=== PATIENT | female | born 1945 | race Caucasian/White ===

== ENCOUNTER → 2023-10-06 10:01 | Outpatient (REF) | payer MEDICARE, SELFPAY | LOC: HWRCS 10:01 | PROVIDERS: ATTENDING PHYSICIAN Physician Assistant Medical; REFERRING PHYSICIAN Internal Medicine Cardiovascular Disease | DX: I51.81 Takotsubo syndrome (principal) | CPT/HCPCS: 93306 ==

== ENCOUNTER → 2024-10-04 10:49 | Outpatient (REF) | payer MEDICARE, SELFPAY ==
[2024-10-04 14:55] LABS: % Basophils 0.4 % (0-2); % Eosinophils 1.4 % (0-6); % Immature Granulocytes 0.7 % (0-0.5); % Lymphocytes 35.9 % (20.5-51.1); % Monocytes 14.2 % (1.7-9.3); % Neutrophils 47.4 % (42.2-75.2); Absolute Eosinophils 0.1 10^3/uL (0-0.7); Absolute Monocytes 0.8 10^3/uL (0.1-0.6); Absolute Neutrophils 2.6 10^3/uL (1.4-6.5); Hematocrit 38.5 % (37.0-47.0); Hemoglobin 12.9 g/dL (12.0-16.0); Mean Corp Hgb Conc. 33.5 g/dL (33.0-37.0); Mean Corpuscular Hgb 28.3 pg (27.0-31.0); Mean Corpuscular Volume 84.4 fL (81.0-99.0); Nucleated Red Blood Cells % 0 %; Platelet Count 244 10^3/uL (130-400); Red Blood Cell Count 4.56 10^6/uL (4.20-5.40); Red Cell Dist. Width 12.6 % (11.5-14.5); White Blood Cell Count 5.6 10^3/uL (4.8-10.8)
[2024-10-04 15:02] LABS: ALT (SGPT) 16 U/L (0-35); AST (SGOT) 24 U/L (14-36); Albumin 4.9 g/dl (3.5-5.0); Alkaline Phosphatase 56 U/L (38-126); Blood Urea Nitrogen 13 mg/dl (7-17); Calcium 9.9 mg/dl (8.4-10.2); Carbon Dioxide 26 mmol/L (22-30); Chloride 99 mmol/L (98-107); Glucose 84 mg/dl (70-99); HDL Cholesterol 83 mg/dl; LDL Cholesterol, Calculated 67 mg/dl; Potassium 4.4 mmol/L (3.5-5.1); Sodium 135 mmol/L (135-145); Total Bilirubin 0.8 mg/dl (0.2-1.3); Total Cholesterol 165 mg/dl (50-199); Total Protein 7.5 g/dl (6.3-8.2); Triglyceride 78 mg/dl (10-149); Very Low Density Lipoprotein 15 mg/dl (0-30); eGFR > 60.00
== END ==
LOC: HWLAB 10:49
PROVIDERS: ATTENDING PHYSICIAN Physician Assistant Medical
DX: Z00.01 Encounter for general adult medical examination with abnormal findings (principal); F33.42 Major depressive disorder, recurrent, in full remission; I51.81 Takotsubo syndrome; G25.0 Essential tremor; E78.00 Pure hypercholesterolemia, unspecified; M25.551 Pain in right hip
CPT/HCPCS: 36415; 80053; 80061; 85025

== ENCOUNTER → 2024-10-05 12:03 | Outpatient (REF) | payer MEDICARE, SELFPAY | LOC: HWRAD 12:03 | PROVIDERS: ATTENDING PHYSICIAN Physician Assistant Medical | DX: M25.551 Pain in right hip (principal) | CPT/HCPCS: 73502 ==

== ENCOUNTER → 2024-11-16 10:58 | Outpatient (REF) | payer MEDICARE, SELFPAY ==
[2024-11-16 16:20] LABS: TSH Reflex To Free T4 1.76 uIU/ml (0.47-4.68)
== END ==
LOC: HWLAB 10:58
PROVIDERS: ATTENDING PHYSICIAN Otolaryngology; FAMILY PHYSICIAN Physician Assistant Medical
DX: E03.9 Hypothyroidism, unspecified (principal)
CPT/HCPCS: 36415; 84443

== ENCOUNTER → 2024-12-21 11:13 | Outpatient (REF) | payer MEDICARE, SELFPAY | LOC: PAVMRI 11:13 | PROVIDERS: ATTENDING PHYSICIAN Otolaryngology; FAMILY PHYSICIAN Family Medicine | DX: H90.3 Sensorineural hearing loss, bilateral (principal) | CPT/HCPCS: 70553; A9575 ==

== ENCOUNTER 2025-08-17 08:08 | Inpatient (IN) | payer MEDICARE, SELFPAY ==
[2025-08-14 15:39] VITALS: BP 163/77
[2025-08-14 16:06] LABS: Hematocrit 40.0 % (37.0-47.0); Hemoglobin 13.6 g/dL (12.0-16.0); Mean Corp Hgb Conc. 34.0 g/dL (33.0-37.0); Mean Corpuscular Volume 83.2 fL (81.0-99.0); Nucleated Red Blood Cells % 0 %; Platelet Count 228 10^3/uL (130-400); Red Cell Dist. Width 12.5 % (11.5-14.5)
[2025-08-14 16:25] LABS: ALT (SGPT) 21 U/L (0-35); AST (SGOT) 23 U/L (14-36); Albumin 4.7 g/dl (3.5-5.0); Alkaline Phosphatase 64 U/L (38-126); Blood Urea Nitrogen 14 mg/dl (7-17); Calcium 9.7 mg/dl (8.4-10.2); Carbon Dioxide 24 mmol/L (22-30); Chloride 100 mmol/L (98-107); Glucose 118 mg/dl (70-99); Potassium 4.3 mmol/L (3.5-5.1); Sodium 131 mmol/L (135-145); Total Protein 7.7 g/dl (6.3-8.2); eGFR > 60.00
[2025-08-14 21:49] VITALS: BP 155/80
[2025-08-14 22:00] VITALS: BP 151/71
--- NOTE | 2025-08-14 22:26 | ED.GENMED ---
History of Present Illness
General
Chief Complaint: Abdominal Symptoms
Source: patient and family
Time Seen by Provider: 08/14/25 21:36
History of Present Illness
History of Present Illness:
This patient is a 79-year-old female with a history of vertigo, last received treatment approximately 1-1/2 years states that she felt purply well when she got up this morning. She went downstairs, had breakfast and then lay down on the sofa. She
then started to feel very dizzy so she sat up and as needed worse associated with nausea. She said it was a sense of spinning but also feeling like she was to be 'lurched to the wall and. She had great difficulty walking to the bathroom where she
had repeated episodes of nonbloody vomiting and nonbloody diarrhea. This was persistent. By 2 PM she was able to call her PCP who referred her to the ED, she then called EMS and arrived here. She continues to report vertigo, much worse when she
moves her head 1 where the other and is unable to walk at this time because of such severe dizziness. She is tired and has a very mild headache. She denies numbness, tingling, diplopia, dysarthria, dysphagia, chest pain, dyspnea, focal weakness,
recent trauma, or other complaints.
Past History
Past History
ED Past Medical History: Other (Essential tremor, Takotsubo, tinnitus, neuropathy, DDD)
ED Past Surgical History: Other (Tympanostomy)
Social History
Tobacco: Non-smoker
Alcohol: None
Drug: None
Phy Exam
Physical Exam
Physical Exam:
GENERAL: Alert , in no apparent distress
EYE: pupils equal and reactive, no photophobia, EOMI, no nystagmus
NECK: Supple, no significant adenopathy.
ENT: o/p clr, mmm.
CARDIAC: Regular rate and rhythm .
LUNGS: Clear breath sounds bilaterally, no acute respiratory distress, no wheezes/rales/rhonchi
ABDOMEN: Soft, without focal tenderness, no r/g, no cvat
NEUROLOGICAL: Alert and oriented, no focal neuro deficits, [id number] normal, motor 5 out of 5, sensory intact, cranial nerves II through XII.
SKIN: Warm and dry, skin intact.
MUSCULOSKELETAL: No edema, well perfused.
PSYCH: Normal and appropriate interaction.
Course
Orders/Labs/Results
Orders:
Orders
08/14/25 15:53
Complete Blood Count/With Diff Urgent
Comprehensive Metabolic Panel Urgent
08/14/25 22:03
CT Head W/o Iv Contrast Urgent
Comment:
Reason For Exam: DIZZY
08/14/25 22:24
0.9% Sodium Chloride 1000 ml [Nss] 1,000 ml IV BOLUS
Lorazepam [Ativan] 1 mg IV NOW STA
08/15/25 00:04
Meclizine [Antivert] 25 mg PO NOW STA
08/15/25 02:32
Admit/Transfer Patient As Directed
Co-Sign Provider:
Level of Care: Observation services
Assign to:: Telemetry
Physician / Group: Jair
Diagnosis: Vertigo
Reason for Telemetry: Arrhythmia
Date to Stop Telemetry: 08/18/25
Time to Stop Telemetry: 11:00
PRN Pain Medication Management As Directed
May give lesser potent ordered pain med per pt: Yes
preference::
Protocol:: Medication orders for pain may be administered in a
manner that supports deferring to patient preference
when the pt is:
- Requesting an ordered lesser potent pain medication.
Least to most potent pain medications are defined
as: acetaminophen < NSAID < tramadol < opioids
(morphine, oxycodone, hydromorphone).
- Requesting a lesser dose of the same medication IF
ORDERED.
- Requesting a less intrusive route of administration
if both routes are prescribed by the provider (PO <
IV).
08/15/25 02:33
Code Status As Directed
Resuscitation Status: Full Code
08/15/25 04:32
Acetaminophen [Tylenol] 650 mg PO Q4HPRN PRN
Diazepam [Valium] 5 mg PO TIDPRN PRN
08/15/25 04:32
Activity As Directed
Activity Level: Ambulate
With Assistance
I/O [Intake/ Output] As Directed
Frequency: Per unit guidelines
Pneumatic Compression Sleeves As Directed
Type: Knee high
Vital Signs As Directed
Frequency: Per unit guidelines
Weight As Directed
Frequency: Daily
Oxygen Therapy [O2 Therapy] [RESP] Routine
Titrate/Wean O2 to maintain O2 sat greater than (%): 94
PT Consult [Pt Eval And Treat] Routine
Treatment: Vestibular Therapy eval
Activity Level: Ambulate
With Assistance
DX Deep Vein Thrombosis Video Routine
08/15/25 Breakfast
Regular
At Your Request: Full Participation
08/15/25 06:30
Basic Metabolic Panel IN AM
Complete Blood Count/No Diff IN AM
TSH Reflex To Free T4 Routine
08/15/25 08:00
Aspirin Low Dose EC [Aspir Low (Enteric Coated)] 81 mg PO DAILY
Atorvastatin [Lipitor] 40 mg PO DAILY
Bupropion(12Hr)Sustain Release [WELLBUTRIN SR (12 hour sustained release)] 150 mg PO DAILY
Carvedilol [Coreg] 3.125 mg PO BID
Gabapentin [Neurontin] 300 mg PO TID
Loratadine [Claritin] 10 mg PO DAILY
Meclizine [Antivert] 25 mg PO Q8HPRN PRN
08/18/25 11:00
DC Protocol for Telemetry ONCE
Abnormal Lab Results
08/14/25
15:53
Abs Immat Gran (auto) 0.1 H 10^3/uL
(0-0.05)
Immature Gran % 1.3 H %
(0-0.5)
Lymphocytes % 20.1 L %
(20.5-51.1)
Sodium 131 L mmol/L
(135-145)
Glucose 118 H mg/dl
(70-99)
08/14/25 15:53
08/14/25 15:53
Vital Signs
Initial and Last Documented VS:
Initial Vital Signs
Temp Pulse Resp BP Pulse Ox
97.4 F 61 16 163/77 97
08/14/25 15:39 08/14/25 15:39 08/14/25 15:39 08/14/25 15:39 08/14/25 15:39
Last Documented Vital Signs
Temp Pulse Resp BP Pulse Ox
98.4 F 73 18 146/74 99
08/16/25 12:00 08/16/25 12:00 08/16/25 12:00 08/16/25 12:00 08/16/25 12:00
*Pulse Oximetry
SaO2: 98
Oxygen Mode of Delivery: Room air
Patient hypoxic: no
*Critical Care Note
Total Time (30-74mins, 75-104mins- exclusive of procedures): Not Applicable
Update Note
Update Note:
Patient presents to the Emergency Department with extreme vertigo associated with nausea vomiting diarrhea
Number and Complexity of Problems Addressed at the Encounter
� Chronic conditions affecting care:
� Acute Exacerbation and/or Progression of Chronic Illness:
� Differential Diagnosis includes: Related to vestibular neuritis, cerebellar infarct, tia, BPPV, dehydration, gastroenteritis, etc etc
Amount and/or Complexity of Data to be Reviewed and Analyzed
� I performed an independent evaluation of and my interpretation is:
EKG:
CT:
Xrays:
Laboratory Studies:unremarkable
Other:
� Review of other/old records reveals:
� Clinical information was obtained by an independent historian:
� Prescriptions/Medications Considered but not given:
� Further testing considered but not performed:
Risk of Complications and/or Morbidity or Mortality of Patient Management
� Social determinants of health affecting care:
� Discussion with other providers (PCP, Hospitalists, Consultants, etc):
� Escalation of care including admission/observation vs risk of discharge considered:Pt intolerant of Browne Bristol maneuver due to extreme dizziness with head movmeent.
1205 AM Reassessment...pt feels only sl better s/p meds. She tried to stand up and started to sway, c/o vertigo. Will admit, neuro c/s and likely MR in AM. Does not meet criteria for MT/tnk given nih=0.
ED Attending Note
-
Portions of this chart may have been created with voice recognition software.� Occasional wrong word or��sound alike� substitutions may have occurred due to the inherent limitations of voice recognition software.
Discharge Plan
Departure
Patient Disposition: Admit
Date of Disposition: 08/15/25
Time of Disposition: 00:05
Admit to: Telemetry
Presentation/result/management discussed w/ accepting MD/DO: Hospitalist
Discharge Problem:
Vertigo
Interventions
Interventions:
*General Assessment Last Done: 08/14/25 15:39
*Neglect/Abuse Screening Last Done: 08/14/25 15:39
*ED COVID-19 Vaccine History Last Done: 08/14/25 21:54
*ED Influenza Vaccine History Last Done: 08/14/25 21:[address]
[facility] Fall Risk Assessment Tool Last Done: 08/14/25 21:54
*Risk Screen - Suicide (C-SSRS) Last Done: 08/14/25 15:39
*Nursing Disposition Last Done: 08/15/25 04:38
SL-Wqlvso-Sgfypwoucf Assessment Last Done: 08/14/25 21:52
Discharge Date and Time
Discharge Date/Time: 08/15/25 04:43
[2025-08-14] MEDS: ATIVAN 1 MG IV (22:36)
[2025-08-14] MEDS: NSS 1000 IV (22:37)
[2025-08-15] VITALS (10 sets, daily range): BP systolic 94–148; BP diastolic 60–76; PULSE 76–88; BMI 30.2
[2025-08-15] MEDS: ANTIVERT 25 MG PO ×2 (00:17→09:31)
--- NOTE | 2025-08-15 02:36 | HPS.HSE ---
Family Physician
-
Family Physician: Miguelina Robertson PA-C
Chief Complaint
-
Dizziness, N/V
History of Present Illness
Patient is a 79y F with PMH significant for vertigo, DDD and Takotsubo's cardiomyopathy who presents to ED complaining of dizziness. Patient states that she woke this AM feeling well. A short time later she developed sudden onset of dizziness,
ataxia, nausea and vomiting. Patient has prior h/o vertigo and notes that this episode was similar - if more severe - than prior episodes. Her symptoms persisted and she presented to the ED for further evaluation.
Patient felt somewhat improved after medication in the ED; however, she remained quite unsteady / ataxic and with some persistent dizziness with movement / head movements.
Medical History
Past Medical History
Past Medical History: Reports Other
Additional Past Medical History:
BPPV
DDD
Essential Tremor
Chronic Pain
Past Surgical History: Reports Other
Additional Past Surgical History:
Spine Fusion
Breast Biopsy x 7 (all benign)
Ankle Surgeries
R Tympanoplasty
Social History
Tobacco: Former Smoker (Quit in 1979.)
Alcohol: Occasional
Drug: None
Family History
Family History: Other (Family history of CAD and Breast Cancer)
Allergies / Home Medications
Allergies reflects when Allergies were last updated in [facility].
Home Medications with original date entered in [facility]
Allergy/Medication List:
Allergies
Allergy/AdvReac Type Severity Reaction Status Date / Time
aspirin Allergy Mild Nausea / Verified 08/14/25 22:22
Vomiting
doxycycline Allergy Mild Nausea / Verified 08/14/25 22:22
Vomiting
erythromycin base Allergy Mild Nausea / Verified 08/14/25 22:22
Vomiting
NSAIDS (Non-Steroidal Allergy Mild Nausea / Verified 08/14/25 22:22
Anti-Inflamma Vomiting
nitrofurantoin (From Allergy Nausea / Verified 08/14/25 22:22
Macrobid) Vomiting
Home Medications
Cbd Gummies 1,500 mg PO DAILY 08/14/25
L.acidop,casei,lactis,rham-B.lact,noemy 625 mg (10 billion cell) capsule (Advanced Probiotic) 2 cap PO BID 08/14/25
acetaminophen 500 mg tablet (Acetaminophen Extra Strength) 1,000 mg PO Q6H PRN pain 08/14/25
acyclovir 5 % topical ointment 1 applic topical PRN PRN outbreak 08/14/25
aspirin 81 mg tablet 81 mg PO DAILY 08/14/25
atorvastatin 40 mg tablet 40 mg PO DAILY 08/14/25
bupropion HCl 150 mg tablet,12 hr sustained-release (Wellbutrin SR) 150 mg PO DAILY 08/14/25
carvedilol 3.125 mg tablet 3.125 mg PO BID 08/14/25
cholecalciferol (vitamin D3) 125 mcg (5,000 unit) tablet (Vitamin D3) 125 mcg PO DAILY 08/14/25
conjugated estrogens 0.625 mg/gram vaginal cream (Premarin) 30 mg vaginal DAILY 08/14/25
gabapentin 300 mg tablet 300 mg PO TID 08/14/25
glucosamine sulf dipot chlr,msm,chond 550 mg-C 30 mg-lety 1 mg capsule (Glucosamine Chondroitin) 1,500 cap PO TID 08/14/25
loratadine 10 mg tablet 10 mg PO DAILY 08/14/25
valacyclovir 1 gram tablet (Valtrex) 1,000 mg PO PRN PRN outbreak 08/14/25
Review of Systems
-
History Source: Patient
A 12 point ROS was completed and negative except as noted: Yes
Constitutional: Denies Fever or Chills
Respiratory: Denies Cough or Trouble Breathing
Cardiac: Denies Chest Pain or Palpitations
Abdomen/GI: Reports Nausea and Vomiting; Denies Abdominal Pain or Diarrhea
: Denies Dysuria or Flank Pain
Musculoskeletal: Denies Joint Pain or Edema
Neurological: Reports Dizzy; Denies Headache, Weakness or Numbness
Psych: Denies Depression or Anxiety
Physical Exam
Vital Signs
Vital Signs
Temp Pulse Resp BP Pulse Ox
98.4 F 75 23 151/71 97
08/14/25 21:53 08/14/25 23:45 08/14/25 23:45 08/14/25 22:00 08/14/25 23:45
Physical Exam
General: Other (79y F in no distress. Sleeping soundly when I entered the room.)
HEENT: Moist mucous membranes, PERRLA and Other (No nystagmus.)
Respiratory: Clear; No Wheezes, Rales or Rhonchi
Cardiac: S1/S2 and Regular Rhythm; No Murmur
GI: Soft, Non Tender, Non Distended and Normal Bowel Sounds
Musculoskeletal: No Clubbing, No Cyanosis and No Edema
Neuro: AO x 3
Laboratory Results
-
08/14/25 15:53
08/14/25 15:53
Laboratory Results
Total Bilirubin 0.7 mg/dl (0.2-1.3) 08/14/25 15:53
AST 23 U/L (14-36) 08/14/25 15:53
ALT 21 U/L (0-35) 08/14/25 15:53
Alkaline Phosphatase 64 U/L (38-126) 08/14/25 15:53
Impression/Plan
-
A/P: Patient is a 79y F with PMH significant for DDD and vertigo who presents to ED complaining of dizziness, ataxia, nausea and vomiting since this AM.
Vertigo / BPPV
- Observe overnight for further evaluation and treatment.
- Patient reports prior history of similar symptoms.
- Continue supportive care.
- Follow for continued improvement.
- PT / Vestibular therapy evaluation in the AM.
DDD
Chronic Pain
- Stable. Continue usual home med regimen.
Dyslipidemia
History of Takotsubo's Cardiomyopathy
- Stable. Continue ASA, Coreg and statin.
DVT Prophylaxis: SCDs
Code Status: Full
[2025-08-15 07:35] LABS: Hematocrit 37.1 % (37.0-47.0); Hemoglobin 12.6 g/dL (12.0-16.0); Mean Corp Hgb Conc. 34.0 g/dL (33.0-37.0); Mean Corpuscular Volume 83.0 fL (81.0-99.0); Platelet Count 210 10^3/uL (130-400); Red Cell Dist. Width 12.7 % (11.5-14.5)
[2025-08-15 07:37] LABS: Blood Urea Nitrogen 12 mg/dl (7-17); Calcium 9.2 mg/dl (8.4-10.2); Carbon Dioxide 24 mmol/L (22-30); Chloride 105 mmol/L (98-107); Estimated Creatinine Clearance 77 ml/min; Glucose 92 mg/dl (70-99); Potassium 3.8 mmol/L (3.5-5.1); Sodium 135 mmol/L (135-145); eGFR > 60.00
[2025-08-15] MEDS: ASPIR LOW (ENTERIC COATED) 81 MG PO (09:22)
[2025-08-15] MEDS: NEURONTIN 300 MG PO ×3 (09:22→21:26)
[2025-08-15] MEDS: LIPITOR 40 MG PO (09:22)
[2025-08-15] MEDS: CLARITIN 10 MG PO (09:22)
[2025-08-15] MEDS: COREG 3.125 MG PO ×2 (09:23→21:26)
[2025-08-15] MEDS: WELLBUTRIN SR (12 hour sustained release) 150 MG PO (09:23)
--- NOTE | 2025-08-15 10:10 | CM ---
Chart reviewed SHAISTA Reviewed with patient and filed in her chart
Spoke with patient at bedside
Lives alone in [address] condo with elevator access
1 floor set up
Independent with ADLs and ambulation
Drives
DME none
Has 2 sons locally who support as needed
PCP Miguelina Robertson
[facility] in [place]
no hx of VN nor SNF
DCP is to go home with no needs
Family can provide transportation
CM will continue to follow up for any dcp needs
--- NOTE | 2025-08-15 13:12 | W.PN.HOSP.TC ---
Today's Communication/Plan
-
MRI brain
ENT eval
continue current care plan otherwise
Assessment / Plan
Assessment / Plan
Assessment:
Vertigo/BPPV
- Patient reports prior history of similar symptoms.
- Continue supportive care - prn Valium, prn Meclizine
- PT/Vestibular therapy
- ENT consulted
- MRI brain w/wo contrast
DDD
Chronic Pain
- Stable. continue usual home med regimen.
Dyslipidemia
History of Takotsubo's Cardiomyopathy
- Stable. continue ASA, Coreg and statin.
DVT Prophylaxis: SCDs
Code Status: Full
Anticipated Discharge: 24 - 48 hours
Subjective/Interval History
-
Date of Service: August 15, 2025
reports ongoing vertigo, no improvement with valium/meclizine/PT evals
reports prior MRI 1 year ago but no access to results/report
Objective Data
-
Labs:
Laboratory Results
08/15/25
06:30
WBC 6.5
Hgb 12.6
Hct 37.1
Plt Count 210
Sodium 135
Potassium 3.8
Chloride 105
Carbon Dioxide 24
BUN 12
Creatinine 0.7
Glucose 92
Calcium 9.2
Vital Signs:
Vital Signs
Temp Pulse Resp BP Pulse Ox
97.8 F 77 16 133/62 100
08/15/25 11:15 08/15/25 11:15 08/15/25 11:15 08/15/25 11:15 08/15/25 11:15
I&O
08/14/25 08/15/25 08/16/25
06:59 06:59 06:59
Intake Total 480 / 480
Balance 480 / 480
Physical Exam
-
General: No Apparent Distress
HEENT: Normocephalic and Atraumatic
Respiratory: Negative Wheezes
Cardiac: Regular Rhythm and S1/S2
GI: Soft and Nontender
Genito-urinary: No Costovertebral Tender
Neuro: AO x 3
Psych: Calm
Data Reviewed
-
Total Time Spent with Patient (in minutes): 42
Labs: Labs Reviewed by me
--- NOTE | 2025-08-15 17:38 | W.CON.OTO ---
Otolaryngology Consult
Chief Complaint
Vertigo
History of Present Illness
Patient is a 79-year-old female known to our practice from previous visit earlier this year. She was in her usual state of health until Thursday morning when she began to experience the room suddenly spinning. At the time this started she was
sitting on a sofa. She denies any inciting event. She denies any change in her hearing or change in ringing in her ear. She has no loss of consciousness. She crawled to the bathroom and had severe nausea and vomiting along with the spinning for
the next 6 hours. She then called her doctor's office who told her to call an ambulance. While waiting for the ambulance and lying on the floor in position the spinning stopped. She has not had any recurrence in the spinning since that
time. However she still has some significant dizziness and imbalance. She also has a headache over both sides of her head extending down to her neck. She does have some double vision and difficulty focusing at times. She has not had any further
nausea or vomiting. She is tolerating oral intake without any difficulty. She denies any recent illnesses. She was seen back in October in my office by Dr. Aguilar and worked up for asymmetric hearing loss. MRI at that time was within normal limits.
She denies any change in her hearing since her initial visit to my office 9 months ago.
Medical History
Additional Past Medical History:
DDD, Essential Tremor, Chronic Pain
Additional Past Surgical History:
Spine Fusion, Breast Biopsy x 7 (all benign), Ankle Surgeries, R Tympanoplasty
Patient Allergies:
Allergies
Allergy/AdvReac Type Severity Reaction Status Date / Time
aspirin Allergy Mild Nausea / Verified 08/14/25 22:22
Vomiting
doxycycline Allergy Mild Nausea / Verified 08/14/25 22:22
Vomiting
erythromycin base Allergy Mild Nausea / Verified 08/14/25 22:22
Vomiting
NSAIDS (Non-Steroidal Allergy Mild Nausea / Verified 08/14/25 22:22
Anti-Inflamma Vomiting
nitrofurantoin (From Allergy Nausea / Verified 08/14/25 22:22
Macrobid) Vomiting
Home Medications / Current Medications:
�Medication �Instructions �Recorded
Cbd Gummies 1,500 mg PO DAILY Supplement 08/14/25
L.acidop,casei,lactis,rham-B.lact,noemy 2 cap PO BID Supplement 08/14/25
625 mg (10 billion cell) capsule
(Advanced Probiotic)
acetaminophen 500 mg tablet 1,000 mg PO Q6H PRN pain 08/14/25
(Acetaminophen Extra Strength)
acyclovir 5 % topical ointment 1 applic topical PRN PRN outbreak 08/14/25
aspirin 81 mg tablet 81 mg PO DAILY Blood Clot 08/14/25
Prevention/Tx
atorvastatin 40 mg tablet 40 mg PO DAILY High Cholesterol 08/14/25
bupropion HCl 150 mg tablet,12 hr 150 mg PO DAILY Mental 08/14/25
sustained-release (Wellbutrin SR) Health/Anxiety
carvedilol 3.125 mg tablet 3.125 mg PO BID Heart 08/14/25
Disease/Condition
cholecalciferol (vitamin D3) 125 125 mcg PO DAILY Supplement 08/14/25
mcg (5,000 unit) tablet (Vitamin
D3)
conjugated estrogens 0.625 mg/gram 30 mg vaginal DAILY Hormonal Agent 08/14/25
vaginal cream (Premarin)
gabapentin 300 mg tablet 300 mg PO TID Pain 08/14/25
glucosamine sulf dipot 1,500 cap PO TID Supplement 08/14/25
chlr,msm,chond 550 mg-C 30 mg-lety
1 mg capsule (Glucosamine
Chondroitin)
loratadine 10 mg tablet 10 mg PO DAILY Allergies 08/14/25
valacyclovir 1 gram tablet 1,000 mg PO PRN PRN outbreak 08/14/25
(Valtrex)
Physical Exam
Vitals / Labs:
Vital Signs
Temp 97.3 F 08/15/25 14:58
Temp route: Oral 08/15/25 14:58
Pulse 72 08/15/25 14:58
Rhythm: Normal sinus rhythm 08/15/25 08:00
Resp Rate 16 08/15/25 14:58
Blood pressure 134/60 08/15/25 14:58
Blood pressure extremity used: Left upper arm 08/15/25 14:58
Position: Lying 08/15/25 14:58
MAP (cuff-Vinh Monitor) 80 08/15/25 03:00
SaO2 99 08/15/25 14:58
Oxygen Mode of Delivery Room air 08/15/25 14:58
Actual Weight 90.083 kg 08/15/25 04:35
Body Mass Index (BMI) 30.2 08/15/25 04:35
Supine- Blood Pressure 114/64 08/15/25 13:19
Supine- Pulse 76 08/15/25 13:19
Sitting- Blood Pressure 129/76 08/15/25 13:19
Sitting- Pulse 81 08/15/25 13:19
Standing- Blood Pressure 130/68 08/15/25 13:19
Standing- Pulse 88 08/15/25 13:19
Lab Results
08/15/25 06:30
08/15/25 06:30
Exam:
Awake, alert, oriented, in no acute distress.
Afebrile, vital signs stable.
Head normocephalic and atraumatic.
Ears clear bilaterally.
Nasal cavity clear anteriorly, mucous membrane within normal limits.
Oral cavity and oropharynx unremarkable, no masses or neoplasms present, pink and moist mucous membranes.
Neck within normal limits, soft and supple, no mass or neoplasm present.
Pupils constricted bilaterally but equal.
Extraocular motions intact.
Nystagmus noted with gaze to the right side, horizontal, slow but persistent.
Assessment / Plan
79-year-old female with vertigo and dizziness.
- This seems to be most consistent with viral labyrinthitis.
- Given gaze evoked nystagmus to the right side patient may have a left vestibular viral impairment.
- Recent CT of head was within normal limits. MRI from November was also within normal limits. I doubt there is a central finding present but agree with MRI.
- Would recommend starting steroids. Ordered 8 mg of Decadron IV today.
- Recommend continuing vestibular and physical therapy to help patient gain stability.
- The normal course of labyrinthitis is that the patient may be dizzy and unsteady for several weeks. She will require outpatient therapy.
- Patient is safe to go home on steroids as long as she is stable and tolerating p.o. intake.
- Will reassess tomorrow.
Data Reviewed
CT Scan: Image Personally Visualized and interpreted (CT scan reviewed. Paranasal sinuses clear. Middle ear cavities and mastoids clear bilaterally. No intracranial masses noted.) and Discussed with Patient
MRI: Other (MRI from January 20, 2025 reviewed. No intracranial abnormalities noted. No evidence of vestibular schwannoma.)
[2025-08-15] MEDS: DECADRON 8 MG IV (17:43)
[2025-08-15 18:23] LABS: Urine Character Cloudy (Clear)
[2025-08-15 18:28] LABS: Urine Squamous Cell 0-2 /LPF (Few)
[2025-08-15 18:30] LABS: Urine Red Blood Cell 50-60 /HPF (0-2); Urine White Cell 70-80 /HPF (0-5)
[2025-08-16 03:24] VITALS: BP 131/64
[2025-08-16 04:57] VITALS: BMI 30.2
[2025-08-16 07:04] LABS: Hematocrit 35.9 % (37.0-47.0); Hemoglobin 12.6 g/dL (12.0-16.0); Mean Corp Hgb Conc. 35.1 g/dL (33.0-37.0); Mean Corpuscular Volume 83.3 fL (81.0-99.0); Platelet Count 194 10^3/uL (130-400); Red Cell Dist. Width 12.3 % (11.5-14.5)
[2025-08-16 07:17] LABS: Blood Urea Nitrogen 12 mg/dl (7-17); Calcium 9.1 mg/dl (8.4-10.2); Carbon Dioxide 23 mmol/L (22-30); Chloride 102 mmol/L (98-107); Estimated Creatinine Clearance 89 ml/min; Glucose 150 mg/dl (70-99); Potassium 4.2 mmol/L (3.5-5.1); Sodium 131 mmol/L (135-145); eGFR > 60.00
[2025-08-16] MEDS: COREG 3.125 MG PO ×2 (09:03→19:08)
[2025-08-16] MEDS: WELLBUTRIN SR (12 hour sustained release) 150 MG PO (09:03)
[2025-08-16] MEDS: CLARITIN 10 MG PO (09:03)
[2025-08-16] MEDS: LIPITOR 40 MG PO (09:03)
[2025-08-16] MEDS: NEURONTIN 300 MG PO ×3 (09:03→21:09)
[2025-08-16] MEDS: ASPIR LOW (ENTERIC COATED) 81 MG PO (09:03)
--- NOTE | 2025-08-16 10:31 | W.PN.ENT ---
Today's Communication
-
Patient improved. Continue Decadron 6 mg today and tomorrow. Anticipate DC tomorrow with tapering dose of prednisone and vestibular therapy as an outpatient.
Impression / Plan
-
79-year-old female with acute labyrinth lightest.
- Does seem to have improved overnight.
- This is likely due to the steroids.
- Would give patient 6 mg of Decadron IV today and tomorrow.
- MRI results pending. I would expect it to be clear based on her normal MRI in November.
- Continue physical and vestibular therapy today.
- Can likely go home tomorrow if she continues to improve.
- Would give patient prednisone 30 mg for 3 days, 20 mg for 3 days, 10 mg for 3 days upon discharge.
- Patient can follow-up as an outpatient.
- Will likely need vestibular therapy as an outpatient as well. Has been seen in the past by outside vestibular therapy.
Subjective Data
-
Patient feels better this morning.
Less dizzy and unsteady.
Able to get out of bed and into a chair without any difficulty.
Continues to tolerate p.o. diet without any nausea or vomiting.
Did get MRI.
Denies any headaches.
Still feels like she has some double vision when looking to the right.
Objective Data
-
Vital Signs
Temp Pulse Resp BP Pulse Ox
97.6 F 65 18 131/64 97
08/16/25 03:24 08/16/25 03:24 08/16/25 03:24 08/16/25 03:24 08/16/25 03:24
Intake & Output
08/15/25 08/16/25 08/17/25
06:59 06:59 06:59
Intake:
Oral fluids 840 / 840
Output:
Urine, Voided 300 / 300
Other:
Number of approximated LARGE 1
amounts of urine
Lab Results
08/16/25 06:27
08/16/25 06:27
Calcium 9.1 mg/dl (8.4-10.2) 08/16/25 06:27
Total Bilirubin 0.7 mg/dl (0.2-1.3) 08/14/25 15:53
AST 23 U/L (14-36) 08/14/25 15:53
ALT 21 U/L (0-35) 08/14/25 15:53
Alkaline Phosphatase 64 U/L (38-126) 08/14/25 15:53
Urine Color Yellow 08/15/25 18:08
Urine Clarity Cloudy (Clear) 08/15/25 18:08
Urine pH 5.0 (5.0-9.0) 08/15/25 18:08
Ur Specific [place] 1.015 (<1.030) 08/15/25 18:08
Urine Ketones Negative (Negative) 08/15/25 18:08
Physical Exam
-
Awake, alert, oriented, in no acute distress.
Nasal cavity, oral cavity, oropharynx unremarkable.
Neck soft and supple.
Extraocular motions intact.
Decreased nystagmus noted with gaze to the right, brief and mild only.
No other neurologic deficits noted.
Data Reviewed
-
Radiology Results: Image Reviewed
--- NOTE | 2025-08-16 10:58 | CM ---
CM reviewed chart, patient seen bedside.
CM discussed therapy recommendation of rehab vs home with therapy and RW.
Patient reports she is typically independent at home, would prefer to d/c home with no therapy or device, would like to see how she progresses in therapy.
CM will continue to follow, if home with outpatient vestibular therapy, will need script.
Plan; home no needs vn outpatient vestibular therapy
[2025-08-16] MEDS: DECADRON 6 MG IV (11:03)
[2025-08-16 11:40] VITALS: BP 146/74
[2025-08-16 12:00] VITALS: BP 146/74
--- NOTE | 2025-08-16 14:58 | W.PN.HOSP.TC ---
Today's Communication/Plan
-
UTI tx
continue steroids and monitor symptoms
appreciate ENT
continue PT/Vestibular therapy
Assessment / Plan
Assessment / Plan
Assessment:
Vertigo
- ENT evaluated appreciated; c/w viral labyrinthitis
- Continue supportive care - prn Valium, prn Meclizine
- continue IV Steroids; tomorrow if continues to improve will dc on pred taper
- PT/Vestibular therapy ongoing and to be setup outpatient.
- MRI brain w/wo contrast without CVA or tumor.
- ENT OP f/u
E. Coli UTI
- Ceftriaxone day 1
- patient prefers Bactrim at dc if sensitive on urine cx
DDD
Chronic Pain
- Stable. continue usual home med regimen.
Dyslipidemia
History of Takotsubo's Cardiomyopathy
- Stable. continue ASA, Coreg and statin.
DVT Prophylaxis: SCDs
Code Status: Full
Anticipated Discharge: Within 24 hours
Subjective/Interval History
-
Date of Service: August 16, 2025
reports vertigo symptoms improving
less dizziness, more steady on feet
Objective Data
-
Labs:
Laboratory Results
08/16/25
06:27
WBC 5.9
Hgb 12.6
Hct 35.9 L
Plt Count 194
Sodium 131 L
Potassium 4.2
Chloride 102
Carbon Dioxide 23
BUN 12
Creatinine 0.6
Glucose 150 H
Calcium 9.1
Vital Signs:
Vital Signs
Temp Pulse Resp BP Pulse Ox
98.4 F 73 18 146/74 99
08/16/25 12:00 08/16/25 12:00 08/16/25 12:00 08/16/25 12:00 08/16/25 12:00
I&O
08/15/25 08/16/25 08/17/25
06:59 06:59 06:59
Intake Total 840 / 840
Output Total 300 / 300
Balance 540 / 540
Physical Exam
-
General: No Apparent Distress
HEENT: Normocephalic and Atraumatic
Respiratory: Negative Wheezes
Cardiac: Regular Rhythm and S1/S2
GI: Soft and Nontender
Genito-urinary: No Costovertebral Tender
Musculoskeletal: No Edema
Neuro: AO x 3
Psych: Calm
Data Reviewed
-
Total Time Spent with Patient (in minutes): 42
Labs: Labs Reviewed by me
[2025-08-16 16:00] VITALS: BP 149/73
[2025-08-16] MEDS: ROCEPHIN 1000 MG IV (16:05)
[2025-08-16] MEDS: STERILE WATER FOR INJECTION 10 ML IV (16:05)
[2025-08-16 19:05] VITALS: BP 148/74
[2025-08-16] MEDS: ANTIVERT 25 MG PO (19:08)
[2025-08-16 23:03] VITALS: BP 142/66
[2025-08-17 03:24] VITALS: BP 120/64
[2025-08-17] MEDS: SENOKOT-S 1 TABLET PO ×2 (03:46→07:59)
[2025-08-17] MEDS: ANTIVERT 25 MG PO (03:46)
[2025-08-17 05:26] VITALS: BMI 30.3
[2025-08-17 07:19] LABS: Hematocrit 38.2 % (37.0-47.0); Hemoglobin 13.1 g/dL (12.0-16.0); Mean Corp Hgb Conc. 34.3 g/dL (33.0-37.0); Mean Corpuscular Volume 83.8 fL (81.0-99.0); Platelet Count 217 10^3/uL (130-400); Red Cell Dist. Width 12.5 % (11.5-14.5)
[2025-08-17 07:41] LABS: Blood Urea Nitrogen 12 mg/dl (7-17); Calcium 9.7 mg/dl (8.4-10.2); Carbon Dioxide 26 mmol/L (22-30); Chloride 101 mmol/L (98-107); Estimated Creatinine Clearance 77 ml/min; Glucose 114 mg/dl (70-99); Potassium 4.1 mmol/L (3.5-5.1); Sodium 136 mmol/L (135-145); eGFR > 60.00
[2025-08-17 07:49] VITALS: BP 140/65
[2025-08-17] MEDS: LIPITOR 40 MG PO (07:59)
[2025-08-17] MEDS: COREG 3.125 MG PO (07:59)
[2025-08-17] MEDS: CLARITIN 10 MG PO (07:59)
[2025-08-17] MEDS: NEURONTIN 300 MG PO (07:59)
[2025-08-17] MEDS: ASPIR LOW (ENTERIC COATED) 81 MG PO (07:59)
[2025-08-17] MEDS: WELLBUTRIN SR (12 hour sustained release) 150 MG PO (07:59)
--- NOTE | 2025-08-17 10:12 | CM ---
Addendum entered by Kelly Galaviz 08/17/25 12:44:
[facility] fax #: [phone]
Addendum entered by Kelly Galaviz 08/17/25 12:02:
CM consult completed. VN
[facility] referral placed in [facility] -vestibular PT
discharge today - spoke with Marce from [facility]
PLAN: Home with [facility]
Original Note:
patient seen at bedside
chart reviewed
PT aval 08/16
spoke with Marce at [facility] they do have a PT that does vestibular theray
PLAN: home, Vestibular therapy rec - will need outpatient script
[2025-08-17] MEDS: STERILE WATER FOR INJECTION 10 ML IV (11:10)
[2025-08-17] MEDS: ROCEPHIN 1000 MG IV (11:10)
[2025-08-17] MEDS: DECADRON 6 MG IV (11:10)
[2025-08-17 11:30] VITALS: BP 136/62
--- NOTE | 2025-08-17 11:39 | W.PN.HOSP.TC ---
Today's Communication/Plan
-
dc to home and VN for outpatient vestibular therapy
Assessment / Plan
Assessment / Plan
Assessment:
Vertigo
- ENT evaluated appreciated; c/w viral labyrinthitis
- Continue supportive care - prn Valium, prn Meclizine
- s/p Steroids; dc on pred taper
- PT/Vestibular therapy ongoing and to be setup outpatient - VN ordered
- MRI brain w/wo contrast without CVA or tumor.
- ENT OP f/u in August 2025
multidrug resistant E. Coli UTI
- s/p 2 doses Ceftriaxone. dc on Bactrim 3 further days starting tomorrow
DDD
Chronic Pain
- Stable. continue usual home med regimen.
Dyslipidemia
History of Takotsubo's Cardiomyopathy
- Stable. continue ASA, Coreg and statin.
DVT Prophylaxis: SCDs
Code Status: Full
More than 30 minutes spent in discharge including
Final examination of the patient
Summarizing hospital stay
Instructions for continuing care to all relevant caregivers
Preparation of discharge records, prescriptions, and referral forms
Total time spent (in minutes): 41
Anticipated Discharge: Today
Subjective/Interval History
-
Date of Service: August 17, 2025
vertigo improved
stable on her feet
no other complaints
eager for dc to home
Objective Data
-
Labs:
Laboratory Results
08/17/25
06:52
WBC 10.4
Hgb 13.1
Hct 38.2
Plt Count 217
Sodium 136
Potassium 4.1
Chloride 101
Carbon Dioxide 26
BUN 12
Creatinine 0.7
Glucose 114 H
Calcium 9.7
Vital Signs:
Vital Signs
Temp Pulse Resp BP Pulse Ox
97.9 F 73 16 136/62 96
08/17/25 11:30 08/17/25 11:30 08/17/25 11:30 08/17/25 11:30 08/17/25 11:30
I&O
08/16/25 08/17/25 08/18/25
06:59 06:59 06:59
Intake Total 840 / 840 1620 / 1620 420 / 420
Output Total 300 / 300
Balance 540 / 540 1620 / 1620 420 / 420
Physical Exam
-
General: No Apparent Distress
HEENT: Normocephalic and Atraumatic
Respiratory: Negative Wheezes
Cardiac: Regular Rhythm and S1/S2
GI: Soft and Nontender
Musculoskeletal: No Edema
Neuro: AO x 3
Psych: Calm
Data Reviewed
-
Total Time Spent with Patient (in minutes): 42
Labs: Labs Reviewed by me
--- NOTE | 2025-08-17 11:44 | W.DCSUMMARY ---
Discharge Summary
Discharge Data
Date of Admission: 08/15/25
Date of Discharge: 08/17/25
-
Pending Results: No
Hospital Course
79 y/o F, hx of H significant for vertigo, DDD and Takotsubo's cardiomyopathy, presented with dizziness and vertigo. She was placed on valium/meclizine without improvement. CT and MRI brain were negative. ENT evaluated and diagnosed patient with
viral labyrinthitis and started IV Steroids. patients symptoms dramatically improved over 48 hours and she was discharged on oral steroid taper and OP vestibular therapy. She will follow up with ENT in 1 month.
She also was found to have E. Coli UTI And will complete 5 days total of antibiotics.
She was discharged home with VN on 08/17/25.
Discharge Plan
-
Patient Disposition: Home with Home Care
Discharge Diagnosis/Procedures: viral labyrinthitis causing vertigo
Condition: Fair
Diet: Regular
Activity: As tolerated
Bathing Restrictions: None
Other Services: VN and PT
Referrals:
Miguelina Robertson PA-C [Family Provider, Internal Medicine]
Denton Hammond MD [Active, ENT] - in one month
Prescriptions:
New
sulfamethoxazole-trimethoprim [Bactrim DS] 800-160 mg tablet
1 tab PO BID Qty: 6 0RF
Rx Instructions:
start 08/18
meclizine 25 mg Tablet
25 mg PO Q8HPRN PRN (Reason: Dizziness) Qty: 20 0RF
prednisone 10 mg tablet
10 mg PO DIRECTED Qty: 18 0RF
Rx Instructions:
start 08/18, take 30mg x 3 days, then 20mg x 3 days then 10mg x 3 days.
Continued
atorvastatin 40 mg Tablet
40 mg PO DAILY
bupropion HCl [Wellbutrin SR] 150 mg Tablet Sustained-Release 12 Hr
150 mg PO DAILY
valacyclovir [Valtrex] 1 gram Tablet
1,000 mg PO PRN PRN (Reason: outbreak)
acetaminophen [Acetaminophen Extra Strength] 500 mg Tablet
1,000 mg PO Q6H PRN (Reason: pain)
carvedilol 3.125 mg Tablet
3.125 mg PO BID
acyclovir 5 % Ointment
1 applic TOPICAL PRN PRN (Reason: outbreak)
Premarin 0.625 mg/gram Cream
30 mg VAGINAL DAILY
aspirin 81 mg Tablet
81 mg PO DAILY
loratadine 10 mg Tablet
10 mg PO DAILY
gabapentin 300 mg Tablet
300 mg PO TID
cholecalciferol (vitamin D3) [Vitamin D3] 125 mcg (5,000 unit) Tablet
125 mcg PO DAILY
Advanced Probiotic 625 mg (10 billion cell) Capsule
2 cap PO BID
Glucosamine Chondroitin 550-30-1 mg Capsule
1,500 cap PO TID
Rx Instructions:
glucosamine 1500mg/Chondrotin 350mg
Cbd Gummies tablet
1,500 mg PO DAILY
Discharge Orders:
Discharge Patient (As Directed); Ordered 08/17/25
Ordered By: Fatmata Gaxiola
Discharge Date and Time
Print Language: SLOVAK
== END 2025-08-17 13:58 | disposition home health service (06) | DRG 149 ==
LOC: 1 ACUTE 08:08
PROVIDERS: Emergency Medicine; ADMITTING PHYSICIAN Hospitalist; ATTENDING PHYSICIAN Internal Medicine; CONSULT PHYSICIAN Otolaryngology; EMERGENCY PHYSICIAN Emergency Medicine; FAMILY PHYSICIAN Physician Assistant Medical
DX: H83.09 Labyrinthitis, unspecified ear (principal); N39.0 Urinary tract infection, site not specified; Z16.24 Resistance to multiple antibiotics; G25.0 Essential tremor; E78.5 Hyperlipidemia, unspecified; H55.00 Unspecified nystagmus; G62.9 Polyneuropathy, unspecified; G89.29 Other chronic pain; H53.2 Diplopia; B97.89 Other viral agents as the cause of diseases classified elsewhere; B96.20 Unspecified Escherichia coli [E. coli] as the cause of diseases classified elsewhere; Z60.2 Problems related to living alone; Z98.1 Arthrodesis status; Z87.891 Personal history of nicotine dependence; Z82.49 Family history of ischemic heart disease and other diseases of the circulatory system; Z80.3 Family history of malignant neoplasm of breast; Z88.6 Allergy status to analgesic agent; Z88.1 Allergy status to other antibiotic agents; Z88.3 Allergy status to other anti-infective agents; Z79.82 Long term (current) use of aspirin; Z79.899 Other long term (current) drug therapy
CPT/HCPCS: 70450; 70553; 80048; 80053; 81003; 81015; 84443; 85025; 85027; 87077; 87086; 87186; 97110; 97116; 97163; 99285; A9575